=== PATIENT | male | born 1970 | race Caucasian/White ===

== ENCOUNTER 2018-02-01 08:58 | Observation (INO) ==
[2018-02-01 09:05] VITALS: RESP 17; TEMP 98.2
--- NOTE | 2018-02-01 09:39 | ED ---
HPI General Chief Complaint: Chest Pain Stated Complaint: Chest Pain Time Seen by Provider: 02/01/18 09:09 Source: patient Mode of arrival: EMS Limitations: no limitations History of Present Illness HPI narrative: Patient is a 47-year-old male, past medical history significant for hypertension who presents with complaint of chest pain that awoke him from sleep and is substernal and heavy in nature. It does radiate to his bilateral shoulders. He states that when he walked around the house it did get worse. He also has some associated dyspnea but no leg swelling nor immobilization. With EMS he did receive aspirin and 1 spray of nitroglycerin without relief of his pain. This pain has never happened before. He does have a family history significant for early cardiac disease with a close relative having a multivessel bypass at the age of 40. He has had a dry, nonproductive cough but no fever./ MD complaint: Reports chest pain STEMI Alert: No Onset (ago): hour(s) Duration: constant Onset: during rest Pain location: Reports substernal Quality: Reports heaviness Pain radiation: Reports RUE and LUE Relieving factors: nothing Exacerbating factors: exertion Associated symptoms: Reports dyspnea Treatments prior to arrival chest pain: Reports aspirin and nitroglycerin Related Data Allergies Allergy/AdvReac Type Severity Reaction Status Date / Time No Known Allergies Allergy Verified 02/01/18 09:16 Review of Systems ROS: all other systems reviewed are negative [facility] Medical History Medical History Hypertension (Acute) Social History Social History Second Hand Smoke Exposure: Yes Smoking Status: Current every day smoker Tobacco Type: Cigarettes How Often Do You Have a Drink Containing Alcohol: 4 or more times a week Recent Travel in [facility] within the Last 8 Weeks: No Recent Out of Country Travel within the Last 8 Weeks: No Immunization History Tetanus Immunization: <5 Years Exam Narrative Exam Narrative: GENERAL: Well-appearing male in no acute distress SKIN: Focused skin assessment warm/dry. HEAD: Atraumatic. Normocephalic. EYES: Pupils equal and round. No scleral icterus. No injection or drainage. ENT: No nasal bleeding or discharge. Mucous membranes pink and moist. NECK: Trachea midline. No JVD. CARDIOVASCULAR: Regular rate and rhythm. No murmur appreciated. RESPIRATORY: No accessory muscle use. Clear to auscultation. Breath sounds equal bilaterally. GASTROINTESTINAL: Abdomen soft, non-tender, nondistended. Hepatic and splenic margins not palpable. MUSCULOSKELETAL: No obvious deformities. No clubbing. No cyanosis. No edema. NEUROLOGICAL: Awake and alert. No obvious cranial nerve deficits. Motor grossly within normal limits. Normal sensation per normal speech. PSYCHIATRIC: Appropriate mood and affect; insight and judgment normal. Course Initial Documented Vital Signs Temperature 98.2 F 02/01/18 09:00 Pulse Rate 88 02/01/18 09:00 Respiratory Rate 17 02/01/18 09:00 Blood Pressure 102/61 02/01/18 09:00 Pulse Oximetry 100 02/01/18 09:00 Last Documented Vital Signs Temperature 98.2 F 02/01/18 09:00 Pulse Rate 98 H 02/01/18 10:31 Respiratory Rate 17 02/01/18 10:31 Blood Pressure 121/79 02/01/18 10:31 Pulse Oximetry 100 02/01/18 10:31 Medical Decision Making [facility] Narrative Medical decision making narrative: Patient is a 47-year-old male who presents with complaint of chest pain. EKG was without acute ischemic changes. He was given aspirin by EMS and nitro and morphine while here with significant improvement. Initial troponin was unremarkable. He has been admitted to the chest pain center for serial troponins and EKGs with a possible stress test. Medical Screen Exam Complete: Yes Emergency Medical Condition: Yes Differential Diagnosis Differential Diagnosis: Differential diagnosis includes but is not limited to acute coronary syndrome, pulmonary embolism, pneumonia. Medical Records Medical records reviewed: Yes I reviewed the patient's medical records. Lab Data Lab results reviewed: Yes I reviewed the patient's lab results. Result diagrams: 02/01/18 09:05 02/01/18 09:05 Lab Results 02/01/18 02/01/18 Range/Units 09:05 09:05 WBC 14.4 H (4.0-11.0) th/mm3 RBC 4.47 L (4.50-5.90) mil/mm3 Hgb 15.9 (13.0-17.0) gm/dL Hct 44.3 (39.0-51.0) % MCV 99.1 (80.0-100.0) fL MCH 35.6 H (27.0-34.0) pg MCHC 36.0 (32.0-36.0) % RDW 13.0 (11.6-17.2) % Plt Count 197 (150-450) th/mm3 MPV 8.3 (7.0-11.0) fL Prelim Diff (Auto) Slide review pending Neut % (Auto) 84.6 H (16.0-70.0) % Lymph % (Auto) 9.1 (9.0-44.0) % [place] % (Auto) 5.6 (0.0-8.0) % Eos % (Auto) 0.1 (0.0-4.0) % Baso % (Auto) 0.6 (0.0-2.0) % Neut # (Auto) 12.1 H (1.8-7.7) th/mm3 Lymph # (Auto) 1.3 (1.0-4.8) th/mm3 [place] # (Auto) 0.8 (0.0-0.9) th/mm3 Eos # (Auto) 0.0 (0.0-0.4) th/mm3 Baso # (Auto) 0.1 (0.0-0.2) th/mm3 WBC Differential . Diff Scan Auto diff confirmed Differential Comment . Sodium 137 (136-145) meq/L Potassium 3.7 (3.5-5.1) meq/L Chloride 103 (98-107) meq/L Carbon Dioxide 23.3 (21.0-32.0) meq/L Anion Gap 11 (5-15) meq/L BUN 11 (7-18) mg/dL Creatinine 0.95 (0.60-1.30) mg/dL Estimated GFR 86 L (>89) mL/min Random Glucose 138 H (74-106) mg/dL Calcium 8.7 (8.5-10.1) mg/dL Total Bilirubin 0.5 (0.2-1.0) mg/dL AST 55 H (15-37) U/L ALT 45 (12-78) U/L Alkaline Phosphatase 90 (45-117) U/L Troponin I Less than 0.02 L (0.02-0.05) ng/mL Total Protein 7.6 (6.4-8.2) g/dL Albumin 3.9 (3.4-5.0) g/dL Imaging Data Attestation: I personally reviewed and interpreted this imaging study as follows : Radiologist's impression: Chest X-Ray 02/01/18 09:17 CONCLUSION: No acute cardiopulmonary disease. ECG Data EKG Prior to Arrival: No Attestation: I personally reviewed and interpreted this ECG as follows: (Sinus rhythm at a rate of [address] or T wave changes.) Discharge Plan Discharge Disposition Patient Disposition: 30 Still Patient Discharge Condition Condition: Stable Discharge Details Diagnosis: Chest pain, rule out acute myocardial infarction Physicians Team ED Provider: Evelyn Dudley Primary Care Provider: UNKNOWN, Attending Provider: Gregory Pozo Discharge Interventions Interventions: Vital Signs Last Done: 02/01/18 09:04 Status ED Status: Admitted Observation Patient
[2018-02-01 09:40] LABS: Baso # (Auto) 0.1 th/mm3 (0.0-0.2); Baso % (Auto) 0.6 % (0.0-2.0); Eos % (Auto) 0.1 % (0.0-4.0); Hematocrit 44.3 % (39.0-51.0); Hemoglobin 15.9 gm/dL (13.0-17.0); Lymph # (Auto) 1.3 th/mm3 (1.0-4.8); Lymph % (Auto) 9.1 % (9.0-44.0); Mean Corpuscular Hemoglobin 35.6 pg (27.0-34.0); Mean Corpuscular Volume 99.1 fL (80.0-100.0); Mean Platelet Volume 8.3 fL (7.0-11.0); Mono # (Auto) 0.8 th/mm3 (0.0-0.9); Mono % (Auto) 5.6 % (0.0-8.0); Neut # (Auto) 12.1 th/mm3 (1.8-7.7); Neut % (Auto) 84.6 % (16.0-70.0); Platelet Count 197 th/mm3 (150-450); Red Blood Count 4.47 mil/mm3 (4.50-5.90); White Blood Count 14.4 th/mm3 (4.0-11.0)
[2018-02-01 09:54] LABS: Alanine Aminotransferase 45 U/L (12-78); Albumin 3.9 g/dL (3.4-5.0); Anion Gap 11 meq/L (5-15); Aspartate Aminotransferase 55 U/L (15-37); Blood Urea Nitrogen 11 mg/dL (7-18); Calcium 8.7 mg/dL (8.5-10.1); Carbon Dioxide 23.3 meq/L (21.0-32.0); Chloride 103 meq/L (98-107); Glomerular Filtration Rate 86 mL/min (>89); Glucose,Random 138 mg/dL (74-106); Potassium 3.7 meq/L (3.5-5.1); Sodium 137 meq/L (136-145)
[2018-02-01 09:59] LABS: Alkaline Phosphatase 90 U/L (45-117); Total Protein 7.6 g/dL (6.4-8.2)
--- NOTE | 2018-02-01 10:05 | XR ---
EXAM DATE: 02/01/2018 9:34 AM EST AGE/SEX: 47 years / Male INDICATIONS: . Chest pain and short of breath since 2am this morning CLINICAL DATA: This is the patient's initial encounter. Patient reports that signs and symptoms have been present for 1 day and indicates a pain score of 8/10. MEDICAL/SURGICAL HISTORY: . smoker None. COMPARISON: No prior exams available for comparison. FINDINGS: PA and lateral views of the chest demonstrate the lungs to be symmetrically aerated without evidence of mass, infiltrate or effusion. Linear atelectasis seen on the lateral projection felt to be within the left base. The cardiomediastinal contours are unremarkable. Osseous structures are intact. CONCLUSION: No acute cardiopulmonary disease. Electronically signed by: Barry Fink MD 02/01/2018 10:04 AM EST
[2018-02-01] MEDS ORDERED: Morphine Inj 4 MG/ML Vial IV.PUSH ONE (10:19)
[2018-02-01] MEDS ORDERED: Ketorolac Inj 30 MG/ML (IVP) Vial IV.PUSH ONE (10:19)
--- NOTE | 2018-02-01 12:28 | P.HPCA ---
History of Present Illness Primary Care Physician: UNKNOWN Chief Complaint: Chest pain History of Present Illness: This is a 47-year-old male with history of hypertension and tobacco abuse that presents to ED with complaint of waking up about 2:00 this morning with the chest discomfort and being short of breath. He describes the discomfort in the left and center of his chest as a weight pressing on him. He was short of breath. Denied nausea or diaphoresis. Symptoms did not radiate. He has found that lying flat worsens it and if he sits up the symptoms will improve significantly. He arrived by [facility]. He was given sublingual nitro spray which did not change his symptoms. Worst level was a 9 out of 10. While in the emergency department he was given more nitroglycerin which he states he does not really think made any difference. Was given IV morphine which she states is helped with the discomfort but still is about a 6 out of 10. Denies prior history of CAD. Cannot recall prior cardiac workup. States he has a grandfather that had a bypass in his early 40s. States he is active. Has been moving a lot of heavy boxes and pushing things around as he is moving and has not had discomfort in his chest from his activities. History of hypertension and tobacco abuse. Denies hyperlipidemia, diabetes, and known CAD. He has had essentially a nonproductive cough for 2 weeks. He states on some mornings he will wake up in a little bit of a light yellow colored mucus. Denies any fevers. Has smoked about 1 pack of cigarettes daily for 25 years. Has on average 6 beers per day. Denies illicit drug use. States his grandfather had a CABG in his early 40s. - Diagnosis (1) Chest pain (2) Hypertension (3) Tobacco abuse Review of Systems General: Patient denies fevers, chills, and recent travel. HEENT: Patient denies headache, sore throat, difficulty swallowing. Cardiovascular: Has the chest discomfort as mentioned above. Symptoms are worsened with lying flat and improved when he sits up. Denies sensation of heart beating rapidly or irregularly. No syncope. Respiratory: He woke up with discomfort also being short of breath. Denies inspirational chest discomfort. Denies coughing wheezing or hemoptysis. GI: Patient denies nausea, vomiting, diarrhea, abdominal pain, bloody stools. Musculoskeletal: Patient denies joint pain or edema. Denies calf pain or edema. Neurovascular: Patient denies numbness, tingling, weakness in extremities. Denies headache. Endocrine: Denies polyuria and polydipsia. Hematologic: Denies easy bruising. Skin: Denies rash or itching. PMFSH - History History Provided By: Patient - Medical History Medical History: Medical History (Last Reviewed 02/01/18 @ 09:38 by Evelyn Dudley MD) Hypertension - Tobacco History Second Hand Smoke Exposure: Yes Tobacco Use In Past 30 Days: Yes Smoking Status: Current every day smoker Tobacco Type: Cigarettes - Alcohol History How Often Do You Have a Drink Containing Alcohol: 4 or more times a week - Travel History Recent Travel in the [place] Within the Last 8 Weeks: No Recent Travel Out of the Country Within the Last 8 Weeks: No - Immunization History Tetanus Immunization: <5 Years Medications and Allergies Active Medications: Active Medications Aspirin (Aspirin) 325 mg PO DAILY ROMAN Ondansetron HCl (Zofran Inj) 4 mg IV.PUSH Q6H PRN PRN Reason: NAUSEA Sodium Chloride (Ns Flush) 2 ml IV.FLUSH UNSCH PRN PRN Reason: FLUSH AFTER USING IV ACCESS Sodium Chloride (Ns Flush) 2 ml IV.FLUSH BID ROMAN Sodium Chloride (Ns Flush) 2 ml IV.FLUSH PRN PRN PRN Reason: FLUSH AFTER USING IV ACCESS Allergies Allergy/AdvReac Type Severity Reaction Status Date / Time No Known Allergies Allergy Verified 02/01/18 09:16 Home Medications Medication Instructions Recorded Confirmed Type amlodipine 10 mg PO DAILY 02/01/18 02/01/18 History Exam Vital signs: Vital Signs 02/01/18 09:00 02/01/18 10:29 02/01/18 10:31 Temperature 98.2 F Pulse Rate 88 102 H 98 H Respiratory Rate 17 17 17 Blood Pressure 102/61 132/79 121/79 Pulse Oximetry 100 100 100 Narrative: GENERAL: This is a well-nourished, well-developed patient, in no apparent distress. Patient speaks in clear complete sentences. Patient is pleasant. HEENT: Head is atraumatic and normocephalic. Neck is supple without lymphadenopathy and trachea is midline. No JVD or carotid bruits. CARDIOVASCULAR: Regular rate and rhythm without murmurs, gallops, or rubs. His discomfort was worsened when he was placed in the supine position and then when sitting back upright states the symptoms improved significantly almost immediately. RESPIRATORY: Clear to auscultation. Breath sounds equal bilaterally. No wheezes , rales, or rhonchi. Chest wall is nontender. No use of accessory muscles. GASTROINTESTINAL: Abdomen is nontender, nondistended. Abdomen soft. No obvious pulsatile mass or bruit. No CVA tenderness. Strong femoral pulses bilaterally. Normal bowel sounds in all quadrants. MUSCULOSKELETAL: Patient is moving upper and lower extremities freely. No calf tenderness or edema, no Homans sign. Strong pulses in upper and lower extremities. NEUROLOGICAL: Patient is alert and oriented. Cranial nerves 2-12 are grossly intact. No focal deficits and speech is clear. SKIN: No rash and turgor is normal. Results 02/01/18 09:05 02/01/18 09:05 Cardiac Enzymes 02/01/18 Range/Units 09:05 AST 55 H (15-37) U/L Troponin I Less than 0.02 L (0.02-0.05) ng/mL CBC 02/01/18 Range/Units 09:05 WBC 14.4 H (4.0-11.0) th/mm3 RBC 4.47 L (4.50-5.90) mil/mm3 Hgb 15.9 (13.0-17.0) gm/dL Hct 44.3 (39.0-51.0) % Plt Count 197 (150-450) th/mm3 Neut # (Auto) 12.1 H (1.8-7.7) th/mm3 Lymph # (Auto) 1.3 (1.0-4.8) th/mm3 [place] # (Auto) 0.8 (0.0-0.9) th/mm3 Eos # (Auto) 0.0 (0.0-0.4) th/mm3 Baso # (Auto) 0.1 (0.0-0.2) th/mm3 Comprehensive Metabolic Panel 02/01/18 Range/Units 09:05 Sodium 137 (136-145) meq/L Potassium 3.7 (3.5-5.1) meq/L Chloride 103 (98-107) meq/L Carbon Dioxide 23.3 (21.0-32.0) meq/L BUN 11 (7-18) mg/dL Creatinine 0.95 (0.60-1.30) mg/dL Calcium 8.7 (8.5-10.1) mg/dL AST 55 H (15-37) U/L ALT 45 (12-78) U/L Alkaline Phosphatase 90 (45-117) U/L Total Protein 7.6 (6.4-8.2) g/dL Albumin 3.9 (3.4-5.0) g/dL - Imaging and Cardiology Imaging: Impressions Chest X-Ray 02/01/18 09:17 CONCLUSION: No acute cardiopulmonary disease. EKG interpretations - EKG EKG shows: sinus rhythm (Initial EKG is sinus rhythm without significant ST segment depressions or elevations.) Caprini VTE Risk Assessment Caprini VTE Risk Assessment: No/Low Risk (score <= 1) Caprini Risk Assessment Model: Point Value = 1 Point Value = 2 Point Value = 3 Point Value = 5 Age 41-60 Minor surgery BMI > 25 kg/m2 Swollen legs Varicose veins or History of unexplained or recurrent spontaneous Oral contraceptives or hormone replacement Sepsis (< 1 month) Serious lung disease, including pneumonia (< 1 month) Abnormal pulmonary function Acute myocardial infarction Congestive heart failure (< 1 month) History of inflammatory bowel disease Medical patient at bed rest Age 61-74 Arthroscopic surgery Major open surgery (> 45 min) Laparoscopic surgery (> 45 min) Malignancy Confined to bed (> 72 hours) Immobilizing plaster cast Central venous access Age >= 75 History of VTE Family history of VTE Factor V Leiden Prothrombin [id number] Lupus anticoagulant Anticardiolipin antibodies Elevated serum homocysteine Heparin-induced thrombocytopenia Other congenital or acquired thrombophilia Stroke (< 1 month) Elective arthroplasty Hip, pelvis, or leg fracture Acute spinal cord injury (< 1 month) Prophylaxis Regimen: Total Risk Factor Score Risk Level Prophylaxis Regimen 0-1 Low Early ambulation 2 Moderate Order ONE of the following: *Sequential Compression Device (SCD) *Heparin 5000 units SQ BID 3-4 Higher Order ONE of the following medications: *Heparin 5000 units SQ TID *Enoxaparin/Lovenox 40 mg SQ daily (WT < 150 kg, CrCl > 30 mL/min) *Enoxaparin/Lovenox 30 mg SQ daily (WT < 150 kg, CrCl > 10-29 mL/min) *Enoxaparin/Lovenox 30 mg SQ BID (WT < 150 kg, CrCl > 30 mL/min) AND/OR *Sequential Compression Device (SCD) 5 or more Highest Order ONE of the following medications: *Heparin 5000 units SQ TID (Preferred with Epidurals) *Enoxaparin/Lovenox 40 mg SQ daily (WT < 150 kg, CrCl > 30 mL/min) *Enoxaparin/Lovenox 30 mg SQ daily (WT < 150 kg, CrCl > 10-29 mL/min) *Enoxaparin/Lovenox 30 mg SQ BID (WT < 150 kg, CrCl > 30 mL/min) AND *Sequential Compression Device (SCD) Assessment and Plan - Assessment (1) Chest pain Code(s): R07.9 - Chest pain, unspecified Status: Acute (2) Hypertension Code(s): I10 - Essential (primary) hypertension Status: Acute (3) Tobacco abuse Code(s): Z72.0 - Tobacco use Status: Acute - Plan * Chest pain: Patient will continue to have serial cardiac enzymes and EKGs for ruling out purposes. Will add a ESR. He will be seen by Dr. Gregory Pozo of cardiology and chest pain center and at that time further plan will be determined. He will need to follow-up with the PCP and return to ED for interval issues after being discharged. * Hypertension: Continue medication. * Tobacco abuse: Patient counseled on the importance of smoking cessation. Patient is stable at this time. He is agreeable to this plan.
[2018-02-01] MEDS ORDERED: MethylPREDNISolone Sod Succinate Inj 125 MG/2 ML Vial IV.PUSH STA (12:43)
--- NOTE | 2018-02-01 12:44 | ECG ---
Date Performed: 02/01/2018 Time Performed: 09:03:01 PTAGE: 47 years EKG: Sinus rhythm POSSIBLE LEFT ATRIAL ENLARGEMENT BORDERLINE ECG Questionable diffuse ST elevation NO PREVIOUS TRACING DOCTOR: Gregory Pozo Interpretating Date/Time 02/01/2018 12:44:36
[2018-02-01 13:08] VITALS: BP 132/63; PULSE 69; O2SAT 96
[2018-02-02] MEDS ORDERED: Aspirin 325 MG Tablet PO SCH (09:00)
--- NOTE | 2018-02-02 16:56 | ECG ---
Date Performed: 02/01/2018 Time Performed: 12:01:09 PTAGE: 47 years EKG: Sinus rhythm NORMAL ECG Since PREVIOUS TRACING , no significant change noted PREVIOUS TRACIN02/01/2018 09.03 DOCTOR: Alma Cody Interpretating Date/Time 02/02/2018 16:55:42
== END 2018-02-01 15:46 | disposition home or self-care (01) ==
LOC: NEDA 08:58 → NEPE 08:58 → NEPFCDU 13:03
PROVIDERS: ADMIT Internal Medicine Cardiovascular Disease; ATTEND Internal Medicine Cardiovascular Disease